=== PATIENT | male | born 1970 | race Caucasian/White ===

== ENCOUNTER 2022-04-20 07:09 | Inpatient (IN) | payer BC ==
[2022-04-14 17:18] LABS: BASOPHILS # (AUTO) 0.1 X10'3 (0-0.2); BASOPHILS % (AUTO) 1.3 % (0-1); EOSINOPHILS # (AUTO) 0.9 X10'3 (0-0.9); EOSINOPHILS % (AUTO) 12.7 % (0-6); LYMPHOCYTES # (AUTO) 1.5 X10'3 (1.1-4.8); LYMPHOCYTES % (AUTO) 22.2 % (21-51); MEAN CORPUSCULAR HEMOGLOBIN 31.3 PG (27.0-31.0); MEAN CORPUSCULAR HGB CONC 33.2 g/dL (33.0-36.5); MEAN CORPUSCULAR VOLUME 94.3 FL (78-98); MEAN PLATELET VOLUME 8.1 FL (7.4-10.4); MONOCYTES # (AUTO) 0.5 X10'3 (0-0.9); MONOCYTES % (AUTO) 7.7 % (2-12); NEUTROPHILS # (AUTO) 3.8 X10'3 (1.8-7.7); NEUTROPHILS % (AUTO) 56.1 % (42-75); PRE OP HEMATOCRIT 41.5 % (42.0-52.0); PRE OP HEMOGLOBIN 13.8 g/dL (14.0-17.9); PRE OP PLATELET COUNT 272 X10'3 (140-440); RED CELL DISTRIBUTION WIDTH 13.6 % (11.5-14.5)
[2022-04-14 17:31] LABS: ALBUMIN 3.7 G/DL (3.4-5.0); ALKALINE PHOSPHATASE 53 IU/L (46-116); BLOOD UREA NITROGEN 15 MG/DL (7-18); CALCIUM 8.7 MG/DL (8.5-10.1); CHLORIDE 104 MMOL/L (99-107); CREATININE 0.79 MG/DL (0.60-1.10); PRE OP ALT 30 U/L (30-65); PRE OP ANION GAP 8 (8-16); PRE OP AST 19 U/L (10-37); PRE OP BILIRUB, TOTAL 0.4 MG/DL (0.0-1.0); PRE OP GLUCOSE 77 MG/DL (70-104); PRE OP POTASSIUM 4.2 MMOL/L (3.4-5.1); PRE OP SODIUM 142 MMOL/L (135-145); TOTAL CARBON DIOXIDE 30.3 MMOL/L (24-32); TOTAL PROTEIN 7.3 G/DL (6.4-8.2); eGFR > 90 ML/MIN
[2022-04-20] VITALS (14 sets, daily range): BP systolic 91–147; BP diastolic 49–90
[~2022-04-20] VITALS: Ht 188 cm; Wt 113.0 kg
[~2022-04-20 07:09] MED LIST: CHOL500049 PO; IBUP-1985 PO; LACT1CAP65 PO; MAGNESIUM/CALCIUM PO; MELA10TA3 PO; SIMV-45 PO; UBIQ100C2 PO; ceFAZolin inj. 2,000 MG in dextrose 5%-water 100 ML IV ONE; famotidine 20mg tablet PO ONE; ringers solution, lacted 1,000 ML IV SCH; tranexamic acid 650mg tablet PO ONE; vancomycin 1,500 MG in NS 300ml IV soln IV ONE
--- NOTE | 2022-04-20 07:40 | NUR ---
CSM: PATIENT STATES THE DID NOT WATCH THE VIDEO. PATIENT STATES THEY DID USE THE MUPIROCIN OINTMENT. PULSES PRESENT AND MARKED. PATIENT EDUCATED ON THE INCENTIVE SPIROMETER AND ITS IMPORTANCE.
[2022-04-20] MEDS ORDERED: ROPIVAcaine 0.5% (5mg/ml) 30ml vial ONE ×2 (09:58→11:05)
[2022-04-20] MEDS ORDERED: tetracaine 1% (10mg/ml) pres. free inj. ONE (09:58)
[2022-04-20] MEDS ORDERED: morphine /PF 1mg/ml 10ml inj. ONE (10:12)
[2022-04-20] MEDS ORDERED: MIDAZolam 1 MG/ML 5ML VIAL ONE (10:26)
[2022-04-20] MEDS ORDERED: ketorolac trometh. 30mg/ml inj. ONE (11:05)
[2022-04-20] MEDS ORDERED: propofol inj 20 ML IV ONE ×5 (11:07→12:32)
[2022-04-20] MEDS ORDERED: 0.9 % SODIUM CHLORIDE 10 ML VIAL ONE ×2 (11:40)
[2022-04-20] MEDS ORDERED: dexamethasone sod phosphate 4mg/ml inj. ONE (11:41)
[2022-04-20] MEDS ORDERED: morphine 4 MG/ML inj SYRINge IV PRN (11:45)
[2022-04-20] MEDS ORDERED: naloxone 2mg/2ml inj 2 MG in normal saline 500ml IV soln 500 ML IV PRN (11:45)
[2022-04-20] MEDS ORDERED: meperidine/PF 25mg/ml syringe IV PRN ×3 (11:45)
[2022-04-20] MEDS ORDERED: proCHLORperazine 10 MG/2 ml inj IV PRN (11:45)
[2022-04-20] MEDS ORDERED: diphenhydrAMINE 50 mg/ml inj IV PRN (11:45)
[2022-04-20] MEDS ORDERED: naloxone 0.4 mg/ml inj IV PRN ×2 (11:45→13:20)
[2022-04-20] MEDS ORDERED: ringers solution, lacted 1,000 ML IV SCH (11:45)
[2022-04-20] MEDS ORDERED: acetaminophen 1,000mg/100ml IV 100 ML IV PRN (11:45)
[2022-04-20] MEDS ORDERED: hydrALAZINE 20mg/ml inj. IV PRN (11:45)
[2022-04-20] MEDS ORDERED: labetalol 20mg/4ml (5mg/ml) syringe IV PRN (11:45)
[2022-04-20] MEDS ORDERED: ondansetron/PF 4mg/2ml inj IV PRN ×3 (11:45→13:20)
[2022-04-20] MEDS ORDERED: morphine 2 MG/ML inj. syringe IV PRN (11:45)
[2022-04-20 12:25] LABS: APPEARANCE,SYNOVIAL FLUID HAZY; COLOR,SYNOVIAL FLUID RED; LYMPHOCYTES,SYNOVIAL FLUID 40 % (0-75); MONOCYTES,SYNOVIAL FLUID 18 % (0-0); NEUTROPHILS,SYNOVIAL FLUID 36 % (0-25); SYN RBC 8600 /CU MM (0); SYN WBC 150 /CU MM (0-200); SYNOVIAL LINING CELLS 6
[2022-04-20] MEDS ORDERED: magnesium hydroxide 30ml (MOM) UD suspension PO PRN (13:20)
[2022-04-20] MEDS ORDERED: HYDROmorphone inj. 0.5 MG/0.5 ML DISP.SYRIN IV PRN (13:20)
[2022-04-20] MEDS ORDERED: oxyCODONE IR 5mg (immed. release) tablet PO PRN (13:20)
[2022-04-20] MEDS ORDERED: non-formulary drug (Ibuprofen 1 TAB) PO PRN (13:20)
[2022-04-20] MEDS ORDERED: bisacodyl 10mg suppository rectal RC PRN (13:20)
[2022-04-20] MEDS ORDERED: diphenhydrAMINE 25mg capsule PO PRN ×2 (13:20)
[2022-04-20] MEDS ORDERED: acetaminophen 325mg tablet PO PRN (13:20)
--- NOTE | 2022-04-20 13:27 | NUR ---
Received from OR via bed , accompanied by Anesthesiologist and report given by Dr. Bonilla Anesthesiologist. Patient drowsy, denies pain, VSS, neurovascular checks intact, scd on, dressing to right knee is clean dry and intact, pyle cath via gravity drainage and yellow urine noted, patient stated that SAB given, numbness on RLE with dermatome level of T12 and no movement at this time. Addendum: 04/20/22 at 1344 by Aryan Ortiz RN Amended: Links added.
--- NOTE | 2022-04-20 14:18 | NUR ---
Patient in room ORTHO 4021A. I have received report from CHRISTINA ZAMORA FORM RECOVERY and had the opportunity to ask questions and assume patient care.
--- NOTE | 2022-04-20 14:25 | NUR ---
PATIENT HAS MET ALL CRITERIA FOR TRANSFER TO ORTHO FLOOR. VSS. DRESSINGS INTACT. BED LOW, CALL LIGHT PRESENT AND 2 RAILS UP. RN PRESENT TO ACCEPT CARE OF PATIENT AND REPORT HAS BEEN CALLED. ALL QUESTIONS ANSWERED TO ACCEPTING RN. Addendum: 04/20/22 at 1440 by Aryan Ortiz RN Amended: Links added.
[2022-04-20] MEDS: acetaminophen 325mg tablet PO SCH ×2 (15:23→20:22)
[2022-04-20] MEDS: ceFAZolin/D5W- 1GM premix 50 ML IV SCH (16:23)
[2022-04-20] MEDS: potassium cl 20mEq in 1/2 NS 1,000 ML IV SCH ×2 (17:38→20:29)
--- NOTE | 2022-04-20 18:00 | NUR ---
PATIENT WAS SEEN SITTING ON THE EDGE OF THE BED AT SHIFT CHANGE. PER DAY SHIFT RN, PATIENT WAS CLEARED BY HIS SURGEON TO GO HOME. UNFORTUNATELY, THE RIGHT KNEE WERE HE WAS OPERATED ON WAS SATURATED IN BLOOD AND WE TRIED TO REINFORCE IT. THE BLEEDING GOT WORSE AND THE SURGEON WAS NOTIFIED. DISCHARGE POSTPONED UNTIL THE BLEEDING IS UNDER CONTROL. PER DOCTOR'S ORDERS, TO REINFORCE THE DRESSING AND PLACE PATIENT IN A CPN AT 90 DEGREES ANGLE. PATIENT IS TOLERATING PAIN WELL AND WE WILL CONTINUE TO MONITOR THE SURGICAL SITE.
--- NOTE | 2022-04-20 18:51 | NUR ---
DR MONIQUE AWARE PATIENT BLOODY DRAINAGE AND STARTED OOZING OUT A LOT WHEN REMOVING BLOODY DRESSING. HE SAID TO KEEP PATIENT AND PRESSURE DRESSING......INCISION ASSESSED AGAIN APPEARS THAT BLOOD IS SHOOTING STRAIGHT OUT OF INCISION. DR MONIQUE CALLED AGAIN. HE SAID PRESSURE DRESSING, GET CPM AND LOCK LEG AT 90 DEGREE FLEXION, THAT THIS MAY HELP STOP BLEED.
[2022-04-20] MEDS: HYDROmorphone 1 mg/ml syringe IV PRN (19:10)
--- NOTE | 2022-04-20 19:18 | NUR ---
Problems reprioritized. Patient report given, questions answered & plan of care reviewed with CHRISTINA MENDOZA.
[2022-04-20] MEDS ORDERED: vancomycin/NS 1 GM ADD-VANTAGE 250 ML IV SCH (20:00)
[2022-04-20] MEDS ORDERED: atorvastatin 20mg tablet PO SCH (21:00)
[2022-04-20] MEDS ORDERED: sennosides 8.6mg tablet PO SCH (21:00)
[2022-04-20] MEDS ORDERED: Melatonin 3mg tablet PO SCH (21:00)
[2022-04-21] VITALS (14 sets, daily range): BP systolic 102–142; BP diastolic 57–80
[2022-04-21] MEDS: ceFAZolin/D5W- 1GM premix 50 ML IV SCH (01:04)
[2022-04-21] MEDS: acetaminophen 325mg tablet PO SCH ×3 (02:00→14:38)
[2022-04-21] MEDS: HYDROmorphone 1 mg/ml syringe IV PRN (04:24)
[2022-04-21] MEDS: potassium cl 20mEq in 1/2 NS 1,000 ML IV SCH ×2 (04:31→14:27)
--- NOTE | 2022-04-21 06:00 | NUR ---
Received patient report from CHRISTINA Quijano.
--- NOTE | 2022-04-21 06:14 | NUR ---
Problems reprioritized. Patient report given, questions answered & plan of care reviewed with GLENDY VASQUEZ.
[2022-04-21] MEDS: oxyCODONE IR 5mg (immed. release) tablet PO PRN ×3 (06:34→16:52)
[2022-04-21 06:54] LABS: ANION GAP 9 (8-16); CHLORIDE 107 MMOL/L (99-107); POTASSIUM 4.5 MMOL/L (3.5-5.1); SODIUM 141 MMOL/L (135-145); TOTAL CARBON DIOXIDE 25.3 MMOL/L (24-32)
[2022-04-21] MEDS ORDERED: morphine 4 MG/ML inj SYRINge IV PRN (07:25)
[2022-04-21] MEDS ORDERED: ondansetron/PF 4mg/2ml inj IV PRN (07:25)
[2022-04-21] MEDS ORDERED: ringers solution, lacted 1,000 ML IV SCH (07:25)
[2022-04-21] MEDS ORDERED: fentaNYL/PF 50MCG/1 ML 2ML syringe IV PRN (07:25)
[2022-04-21] MEDS ORDERED: hydrALAZINE 20mg/ml inj. IV PRN (07:25)
[2022-04-21] MEDS ORDERED: morphine 2 MG/ML inj. syringe IV PRN (07:25)
[2022-04-21] MEDS ORDERED: labetalol 20mg/4ml (5mg/ml) syringe IV PRN (07:25)
[2022-04-21 07:42] LABS: BASOPHILS % (AUTO) 0.2 % (0-1); EOSINOPHILS % (AUTO) 0.3 % (0-6); HEMATOCRIT 34.1 % (42.0-52.0); HEMOGLOBIN 11.6 g/dl (14.0-17.9); LYMPHOCYTES # (AUTO) 1.1 X10'3 (1.1-4.8); LYMPHOCYTES % (AUTO) 14.6 % (21-51); MEAN CORPUSCULAR HEMOGLOBIN 31.9 PG (27.0-31.0); MEAN CORPUSCULAR HGB CONC 33.9 g/dL (33.0-36.5); MEAN CORPUSCULAR VOLUME 93.9 FL (78-98); MEAN PLATELET VOLUME 7.8 FL (7.4-10.4); MONOCYTES # (AUTO) 0.7 X10'3 (0-0.9); NEUTROPHILS # (AUTO) 5.8 X10'3 (1.8-7.7); NEUTROPHILS % (AUTO) 75.9 % (42-75); PLATELET COUNT 224 X10'3 (140-440); RED BLOOD COUNT 3.63 X10'6 (4.70-6.10); RED CELL DISTRIBUTION WIDTH 13.3 % (11.5-14.5); WHITE BLOOD COUNT 7.7 X10'3 (4.5-11.0)
[2022-04-21] MEDS ORDERED: cholecalciferol (vitamin D3) 1,000 unit (25mcg) tablet PO SCH (08:00)
[2022-04-21] MEDS ORDERED: UBIQUINOL 50 MG PO SCH (08:00)
[2022-04-21] MEDS ORDERED: CALCIUM PO SCH (08:00)
[2022-04-21] MEDS ORDERED: MAGNESIUM PO SCH (08:00)
[2022-04-21] MEDS ORDERED: lactobacillus rhamnosus 10,000 MMU CELLS/CAPSULE PO SCH (08:00)
--- NOTE | 2022-04-21 08:00 | NUR ---
REVIEWED AND CHANGED CRISIS COUNSELOR PHYSICAL ASSESSMENT CHARTING, I AGREE W/PHYSICAL ASSESSMENT CHARTING AT THIS TIME
[2022-04-21] MEDS ORDERED: aspirin 325mg tablet PO SCH (08:30)
[2022-04-21] MEDS ORDERED: BUPIVAcaine 0.5% inj/PF 30 ML ONE (09:16)
[2022-04-21] MEDS ORDERED: ROPIVAcaine 0.5% (5mg/ml) 30ml vial ONE ×2 (09:26→10:17)
[2022-04-21] MEDS ORDERED: fentaNYL/PF 50MCG/1 ML 2ML syringe ONE (09:28)
[2022-04-21] MEDS ORDERED: midazolam 1 mg/ML 2ml injection ONE (09:28)
[2022-04-21] MEDS ORDERED: propofol inj 20 ML IV ONE (09:30)
[2022-04-21] MEDS ORDERED: ondansetron/PF 4mg/2ml inj ONE (09:30)
[2022-04-21] MEDS ORDERED: LIDOcaine 2% (20mg/ml) 5ml vial ONE (09:30)
[2022-04-21] MEDS ORDERED: sevoflurane 250ml liquid IH ONE (09:38)
[2022-04-21] MEDS ORDERED: dexamethasone sod phosphate 4mg/ml inj. ONE (09:45)
[2022-04-21] MEDS ORDERED: tranexamic acid 100mg/ml inj. ONE (10:09)
[2022-04-21] MEDS ORDERED: ketorolac trometh. 30mg/ml inj. ONE (10:17)
[2022-04-21] MEDS ORDERED: meperidine/PF 25mg/ml syringe ONE (10:43)
--- NOTE | 2022-04-21 10:45 | NUR ---
Received from OR via , accompanied by Anesthesiologist and report given by Anesthesiolgist. PATIENT A&OX4, VSS. C/O 06/10 PAIN RIGHT KNEE SEE EMAR, . DRESSING TO RIGHT KNEE C/D/I SCD ON,. CAP REFILL WNL. ICE APPLIED. IV RUNNING LR TO 20 G IV TO LEFT HAND.
--- NOTE | 2022-04-21 10:46 | NUR ---
PT GIVEN 25 MG DEMEROL FOR PAIN AND SHIVERS PER DR DOMINGUEZ VERBAL ORDERS AT BEDSIDE. Addendum: 04/21/22 at 1047 by Nubia Barahona RN Amended: Links added.
[2022-04-21] MEDS ORDERED: acetaminophen 1,000mg/100ml IV 100 ML IV ONE (10:50)
[2022-04-21] MEDS: fentaNYL/PF 50MCG/1 ML 2ML syringe IV PRN ×2 (10:50→10:57)
--- NOTE | 2022-04-21 11:16 | NUR ---
RECEIVED REPORT FROM CHRISTINA CRAIG IN RECOVERY
--- NOTE | 2022-04-21 11:25 | NUR ---
PATIENT A&OX4, VSS. C/O 02/08 PAIN RIGHT KNEE SEE EMAR, . DRESSING TO RIGHT KNEE C/D/I SCD ON,. CAP REFILL WNL. ICE APPLIED. IV RUNNING LR TO 20 G IV TO LEFT HAND. PATIENT TAKEN TO 4021A WITH ALL BELONGINGS AND HOOKED UP TO MONITORS IN ROOM AND REPORT GIVEN TO RN WHO HAS TAKEN OVER PATIENT CARE.
[2022-04-21] MEDS ORDERED: ceFAZolin/D5W- 1GM premix 50 ML IV SCH (16:00)
--- NOTE | 2022-04-21 18:13 | NUR ---
Problems reprioritized. Patient report given, questions answered & plan of care reviewed with CHRISTINA Quijano.
--- NOTE | 2022-04-21 18:59 | NUR ---
Patient in room ORTHO 4021. I have received report from GABRIEL VASQUEZ and had the opportunity to ask questions and assume patient care.
--- NOTE | 2022-04-21 19:30 | NUR ---
PATIENT DISCHARGED HOME. EDUCATION PROVIDED AND TO CALL ER IF ANY COMPLICATIONS. SPOUSE DROVE PATIENT HOME.
--- NOTE | 2022-04-21 19:45 | NUR ---
dc pt home with and all belongings.
[2022-04-22] MEDS ORDERED: acetaminophen 325mg tablet PO PRN (13:20)
== END 2022-04-21 19:45 | disposition home or self-care (01) | DRG 468 ==
LOC: PAS IN 07:09 → EDSTATUS 12:45 → ORTHO 4S 14:32
PROVIDERS: ADMIT Orthopaedic Surgery; ATTEND Orthopaedic Surgery
PROC: 0SRC0J9 Replacement of Right Knee Joint with Synthetic Substitute, Cemented, Open Approach (ICD-10-PCS; 2022-04-20)
PROC: 0SPC0JZ Removal of Synthetic Substitute from Right Knee Joint, Open Approach (ICD-10-PCS; principal; 2022-04-20 09:58)
PROC: 0H5 Skin and Breast, Destruction (ICD-10-PCS; 2022-04-21)
DX: T84.82XA Fibrosis due to internal orthopedic prosthetic devices, implants and grafts, initial encounter (principal); Z96.651 Presence of right artificial knee joint; M25.661 Stiffness of right knee, not elsewhere classified; Y83.8 Other surgical procedures as the cause of abnormal reaction of the patient, or of later complication, without mention of misadventure at the time of the procedure; Z20.822 Contact with and (suspected) exposure to COVID-19; L91.0 Hypertrophic scar; Z79.899 Other long term (current) drug therapy; Y92.89 Other specified places as the place of occurrence of the external cause
CPT/HCPCS: Z7506; Z7508; 36415; 80051; 80053; 82948; 85025; 87070; 87075; 87081; 89051; 93005; 97110; 97116; 97161; 97530; A4215; A4618; A6253; A6446; A6449; A7000; C1713; C1758; C1776; G0378; J0131; J0690; J1100; J1170; J1885; J2175; J2250; J2270; J2274; J2405; J2704; J2795; J3010; J3370; J3480; J3490; J7030; J7040; J7060; J7120; S0020

== ENCOUNTER 2022-04-27 09:45 | Outpatient (CLI) | payer BC ==
[~2022-04-27 09:45] MED LIST changes: -ceFAZolin inj. 2,000 MG in dextrose 5%-water 100 ML IV ONE; -famotidine 20mg tablet PO ONE; -ringers solution, lacted 1,000 ML IV SCH; -tranexamic acid 650mg tablet PO ONE; -vancomycin 1,500 MG in NS 300ml IV soln IV ONE
[2022-04-27] MEDS ORDERED: APIX5TAB3 PO (11:22)
== END 2022-04-27 23:59 | disposition home or self-care (01) ==
LOC: VAS 09:45
PROVIDERS: ATTEND Physician Assistant
DX: I82.441 Acute embolism and thrombosis of right tibial vein (principal); M79.81 Nontraumatic hematoma of soft tissue
CPT/HCPCS: 93971

== ENCOUNTER 2022-04-27 10:58 | Emergency (ER) | payer BC ==
[~2022-04-27] VITALS: Ht 188 cm; Wt 111.4 kg
[2022-04-27 11:00] VITALS: BP 129/76
[2022-04-27] MEDS ORDERED: APIX5TAB3 PO (11:22)
== END 2022-04-27 11:43 | disposition home or self-care (01) ==
LOC: ER 10:58
DX: I82.441 Acute embolism and thrombosis of right tibial vein (principal); Z98.890 Other specified postprocedural states; Z79.01 Long term (current) use of anticoagulants; Z79.899 Other long term (current) drug therapy
CPT/HCPCS: 99284

== ENCOUNTER 2022-08-27 08:55 | Inpatient (IN) | payer BC ==
[2022-08-24 14:16] LABS: BASOPHILS # (AUTO) 0.1 X10'3 (0-0.2); BASOPHILS % (AUTO) 0.7 % (0-1); EOSINOPHILS # (AUTO) 0.2 X10'3 (0-0.9); EOSINOPHILS % (AUTO) 2.5 % (0-6); LYMPHOCYTES # (AUTO) 1.4 X10'3 (1.1-4.8); MEAN CORPUSCULAR VOLUME 88.2 FL (78-98); MEAN PLATELET VOLUME 7.1 FL (7.4-10.4); MONOCYTES # (AUTO) 0.6 X10'3 (0-0.9); MONOCYTES % (AUTO) 8.6 % (2-12); NEUTROPHILS # (AUTO) 4.7 X10'3 (1.8-7.7); NEUTROPHILS % (AUTO) 68.2 % (42-75); PRE OP HEMATOCRIT 37.5 % (42.0-52.0); PRE OP HEMOGLOBIN 12.8 g/dL (14.0-17.9); PRE OP PLATELET COUNT 359 X10'3 (140-440); RED BLOOD COUNT 4.25 X10'6 (4.70-6.10); RED CELL DISTRIBUTION WIDTH 14.2 % (11.5-14.5)
[2022-08-24 14:26] LABS: ALBUMIN 3.6 G/DL (3.4-5.0); ALBUMIN/GLOBULIN RATIO 0.8 (1.1-1.5); ALKALINE PHOSPHATASE 62 IU/L (46-116); BLOOD UREA NITROGEN 13 MG/DL (7-18); BUN/CREATININE RATIO 15.3 (5.4-32.0); CHLORIDE 101 MMOL/L (99-107); CREATININE 0.85 MG/DL (0.60-1.10); PRE OP ALT 21 U/L (30-65); PRE OP ANION GAP 6 (8-16); PRE OP AST 15 U/L (10-37); PRE OP BILIRUB, TOTAL 0.4 MG/DL (0.0-1.0); PRE OP GLUCOSE 92 MG/DL (70-104); PRE OP POTASSIUM 4.1 MMOL/L (3.4-5.1); PRE OP SODIUM 138 MMOL/L (135-145); TOTAL CARBON DIOXIDE 30.8 MMOL/L (24-32); TOTAL PROTEIN 7.9 G/DL (6.4-8.2); eGFR > 90 ML/MIN
[~2022-08-27] VITALS: Ht 188 cm; Wt 101.6 kg
[2022-08-27] VITALS (12 sets, daily range): BP systolic 97–126; BP diastolic 58–90
[~2022-08-27 08:55] MED LIST changes: +ACET-75 PO; +APIX5TAB3 PO; +CALC-995 PO; -IBUP-1985 PO; +MAGN400T39 PO; -MAGNESIUM/CALCIUM PO; +OXYC10TA47 PO; +UBID100C45 PO; -UBIQ100C2 PO; +ceFAZolin inj. 2,000 MG in dextrose 5%-water 100 ML IV ONE; +famotidine 20mg tablet PO ONE; +ringers solution, lacted 1,000 ML IV SCH; +tranexamic acid 650mg tablet PO ONE
[2022-08-27] MEDS ORDERED: morphine 2 MG/ML inj. syringe IV PRN (11:05)
[2022-08-27] MEDS ORDERED: ringers solution, lacted 1,000 ML IV SCH (11:05)
[2022-08-27] MEDS ORDERED: ondansetron/PF 4mg/2ml inj IV PRN ×2 (11:05→15:50)
[2022-08-27] MEDS ORDERED: meperidine/PF 25mg/ml syringe IV PRN ×3 (11:05)
[2022-08-27] MEDS ORDERED: proCHLORperazine 10 MG/2 ml inj IV PRN (11:05)
[2022-08-27] MEDS ORDERED: morphine 4 MG/ML inj SYRINge IV PRN (11:05)
[2022-08-27] MEDS ORDERED: ketorolac trometh. 30mg/ml inj. ONE (12:21)
[2022-08-27] MEDS ORDERED: ROPIVAcaine 0.5% (5mg/ml) 30ml vial ONE ×2 (12:21→15:33)
[2022-08-27] MEDS ORDERED: MIDAZolam 1mg/ml 10ml vial ONE (13:21)
[2022-08-27] MEDS ORDERED: fentaNYL/PF 50MCG/1 ML 2ML syringe ONE (13:21)
[2022-08-27] MEDS ORDERED: vancomycin 1,000mg inj ONE (13:47)
[2022-08-27] MEDS ORDERED: tobramycin 40mg/ml inj ONE (13:48)
[2022-08-27] MEDS ORDERED: propofol inj 20 ML IV ONE (13:55)
[2022-08-27] MEDS ORDERED: LIDOcaine 1%/PF 5ML 10 MG/ML VIAL ONE (13:55)
[2022-08-27] MEDS ORDERED: VANCOMYCIN 1,500MG in normal saline IV soln 300 ML IV ONE (14:05)
[2022-08-27] MEDS ORDERED: tranexamic acid 100mg/ml inj. ONE (14:30)
[2022-08-27] MEDS ORDERED: diphenhydrAMINE 50 mg/ml inj ONE (14:35)
[2022-08-27] MEDS ORDERED: cloNIDine hcl/PF 100mcg/ml inj ONE (15:18)
[2022-08-27] MEDS ORDERED: oxyCODONE IR 5mg (immed. release) tablet PO PRN (15:50)
[2022-08-27] MEDS ORDERED: non-formulary drug (Acetaminophen 1 TAB) PO PRN (15:50)
[2022-08-27] MEDS ORDERED: HYDROmorphone inj. 0.5 MG/0.5 ML DISP.SYRIN IV PRN (15:50)
[2022-08-27] MEDS ORDERED: magnesium hydroxide 30ml (MOM) UD suspension PO PRN (15:50)
[2022-08-27] MEDS ORDERED: HYDROcodone/acetaminophen 10/325mg tab PO PRN ×2 (15:50)
[2022-08-27] MEDS ORDERED: acetaminophen 325mg tablet PO PRN (15:50)
[2022-08-27] MEDS ORDERED: diphenhydrAMINE 25mg capsule PO PRN ×2 (15:50)
[2022-08-27] MEDS ORDERED: naloxone 0.4 mg/ml inj IV PRN (15:50)
[2022-08-27] MEDS ORDERED: bisacodyl 10mg suppository rectal RC PRN (15:50)
--- NOTE | 2022-08-27 16:00 | NUR ---
Received from OR via , accompanied by Anesthesiologist and report given by Anesthesiolgist. PATIENT A&OX4, DENIES PAIN, V/S WNL, SCD ON , PIV 20G LUE, DRESSING CDI TO RIGHT KNEE CDI W/ JESSY MINIMAL OUTPUT, RIGHT LEG BRACE LOCKED AT 180 DEGREES, F/C DRAINING CLEAR YELLOW URINE.
--- NOTE | 2022-08-27 16:45 | NUR ---
Patient arrived in floor, situated in room, call light given and educated on how to use. Post-op vital signs started.
--- NOTE | 2022-08-27 16:50 | NUR ---
PATIENT A&OX4, DENIES PAIN, V/S WNL, SCD ON , PIV 20G LUE, DRESSING CDI TO RIGHT KNEE CDI W/ JESSY MINIMAL OUTPUT, RIGHT LEG BRACE LOCKED AT 180 DEGREES, F/C DRAINING CLEAR YELLOW URINE.PATIENT TAKEN TO 350B FLOOR ROOM WITH ALL BELONGINGS AND HOOKED UP TO ALL MONITORS IN ROOM AND REPORT GIVEN TO RN WHO HAS TAKEN OVER PATIENT CARE.
[2022-08-27] MEDS: oxyCODONE IR 5mg (immed. release) tablet PO PRN ×2 (17:34→22:15)
[2022-08-27] MEDS: ceFAZolin/D5W- 1GM premix 50 ML IV SCH ×2 (18:17→23:49)
[2022-08-27] MEDS: HYDROmorphone 1 mg/ml syringe IV PRN (18:17)
--- NOTE | 2022-08-27 18:52 | NUR ---
Problems reprioritized. Patient report given, questions answered & plan of care reviewed with ANTHONY RN.
--- NOTE | 2022-08-27 19:40 | NUR ---
PT STATED HE WAS EXPERIENCING EXCRUCIATING PAIN ON SURGICAL SITE(RT KNEE) AND PAIN MEDS DID NOT HELP AT ALL. PAGED FOR PAIN MANAGEMENT. EXPLAINED PT AND HIS ABOUT PLANS. PT IS ON RT KNEE IMMOBILIZER, AND EMPTIED 70ML SANGUINOUS COLOR FROM JESSY DRAIN.
[2022-08-27] MEDS: apixaban 5mg tablet PO SCH (20:00)
[2022-08-27] MEDS: acetaminophen 325mg tablet PO SCH (20:00)
[2022-08-27] MEDS ORDERED: vancomycin/NS 1 GM ADD-VANTAGE 250 ML IV SCH (20:00)
[2022-08-27] MEDS ORDERED: HYDROmorphone 1 mg/ml syringe IV ONE (20:35)
[2022-08-27] MEDS: potassium cl 20mEq in 1/2 NS 1,000 ML IV SCH ×2 (20:48→23:50)
[2022-08-27] MEDS: sennosides 8.6mg tablet PO SCH (21:00)
--- NOTE | 2022-08-27 21:00 | NUR ---
RECEIVED NEW ORDERS OF PAIN MGMT. DILAUDID 2MG IVP ONCE, AND PT FELT BETTER. EXPLAINED NEW PAIN MGMT AND WOULD CALL ANESTHESIOLOGIST FOR NERVE BLOCK TOMORROW PER MD. PT VERBALIZED UNDERSTANDING.
[2022-08-28] MEDS: HYDROmorphone 1 mg/ml syringe IV PRN ×6 (01:25→20:05)
[2022-08-28 01:39] VITALS: BP 120/73
[2022-08-28] MEDS: acetaminophen 325mg tablet PO SCH ×4 (01:46→20:05)
[2022-08-28] MEDS: oxyCODONE IR 5mg (immed. release) tablet PO PRN ×2 (04:59→15:27)
--- NOTE | 2022-08-28 07:00 | NUR ---
Patient in room [facility] 350. I have received report from ANTHONY RN and had the opportunity to ask questions and assume patient care.
[2022-08-28 07:03] LABS: BASOPHILS % (AUTO) 0.4 % (0-1); EOSINOPHILS % (AUTO) 0.1 % (0-6); HEMATOCRIT 32.5 % (42.0-52.0); LYMPHOCYTES # (AUTO) 1.4 X10'3 (1.1-4.8); LYMPHOCYTES % (AUTO) 13.7 % (21-51); MEAN CORPUSCULAR HEMOGLOBIN 29.9 PG (27.0-31.0); MEAN CORPUSCULAR HGB CONC 33.8 g/dL (33.0-36.5); MEAN CORPUSCULAR VOLUME 88.5 FL (78-98); MEAN PLATELET VOLUME 7.8 FL (7.4-10.4); MONOCYTES # (AUTO) 0.8 X10'3 (0-0.9); MONOCYTES % (AUTO) 7.9 % (2-12); NEUTROPHILS # (AUTO) 8.2 X10'3 (1.8-7.7); NEUTROPHILS % (AUTO) 77.9 % (42-75); PLATELET COUNT 342 X10'3 (140-440); RED BLOOD COUNT 3.67 X10'6 (4.70-6.10); RED CELL DISTRIBUTION WIDTH 14.2 % (11.5-14.5); WHITE BLOOD COUNT 10.5 X10'3 (4.5-11.0)
[2022-08-28 07:28] LABS: ANION GAP 9 (8-16); CHLORIDE 101 MMOL/L (99-107); POTASSIUM 4.3 MMOL/L (3.5-5.1); SODIUM 136 MMOL/L (135-145); TOTAL CARBON DIOXIDE 25.7 MMOL/L (24-32)
[2022-08-28 08:00] VITALS: BP 124/91
[2022-08-28] MEDS ORDERED: calcium carbonate 500mg tablet PO SCH (08:00)
[2022-08-28] MEDS ORDERED: non-formulary drug (Ubidecarenone (Co Q-10) 1 CAP) PO SCH (08:00)
[2022-08-28] MEDS: magnesium oxide 400mg tablet PO SCH (08:28)
[2022-08-28] MEDS: cholecalciferol (vitamin D3) 1,000 unit (25mcg) tablet PO SCH (08:28)
[2022-08-28] MEDS: lactobacillus rhamnosus 10,000 MMU CELLS/CAPSULE PO SCH (08:28)
[2022-08-28] MEDS: apixaban 5mg tablet PO SCH ×2 (08:43→20:04)
[2022-08-28] MEDS: aspirin 325mg tablet PO SCH (08:43)
[2022-08-28] MEDS: potassium cl 20mEq in 1/2 NS 1,000 ML IV SCH ×2 (08:43→17:06)
[2022-08-28 12:13] VITALS: BP 120/67
[2022-08-28] MEDS: vancomycin/NS 1 GM ADD-VANTAGE 250 ML IV SCH ×2 (15:27→23:20)
[2022-08-28 16:43] VITALS: BP 128/88
[2022-08-28] MEDS ORDERED: HYDROmorphone 1 mg/ml syringe IV PRN (17:35)
[2022-08-28 18:00] VITALS: BP 115/72
--- NOTE | 2022-08-28 18:25 | NUR ---
Patient in room [facility] 350. I have received report from CHRISTINA Villalta and had the opportunity to ask questions and assume patient care.
[2022-08-28] MEDS: ketorolac trometh. 30mg/ml inj. IV PRN (19:04)
--- NOTE | 2022-08-28 19:05 | NUR ---
Problems reprioritized. Patient report given, questions answered & plan of care reviewed with Mariana VASQUEZ.
[2022-08-28] MEDS: sennosides 8.6mg tablet PO SCH (20:14)
[2022-08-28 22:00] VITALS: BP 105/80
[2022-08-29] MEDS: potassium cl 20mEq in 1/2 NS 1,000 ML IV SCH ×3 (01:37→12:50)
[2022-08-29] MEDS: acetaminophen 325mg tablet PO SCH ×3 (01:38→14:58)
[2022-08-29] MEDS: HYDROmorphone 1 mg/ml syringe IV PRN ×4 (01:39→12:36)
[2022-08-29 06:00] VITALS: BP 132/53
--- NOTE | 2022-08-29 06:30 | NUR ---
Patient in room [facility] 350. I have received report from CHRISTINA Peña and had the opportunity to ask questions and assume patient care.
--- NOTE | 2022-08-29 06:39 | NUR ---
Problems reprioritized. Patient report given, questions answered & plan of care reviewed with CHRISTINA Vargas.
[2022-08-29 06:46] LABS: BASOPHILS % (AUTO) 0.4 % (0-1); EOSINOPHILS # (AUTO) 0.1 X10'3 (0-0.9); EOSINOPHILS % (AUTO) 1.8 % (0-6); HEMATOCRIT 24.4 % (42.0-52.0); HEMOGLOBIN 8.4 g/dl (14.0-17.9); LYMPHOCYTES # (AUTO) 1.5 X10'3 (1.1-4.8); LYMPHOCYTES % (AUTO) 17.6 % (21-51); MEAN CORPUSCULAR HEMOGLOBIN 30.2 PG (27.0-31.0); MEAN CORPUSCULAR HGB CONC 34.5 g/dL (33.0-36.5); MEAN CORPUSCULAR VOLUME 87.6 FL (78-98); MEAN PLATELET VOLUME 7.9 FL (7.4-10.4); MONOCYTES # (AUTO) 0.9 X10'3 (0-0.9); MONOCYTES % (AUTO) 11.3 % (2-12); NEUTROPHILS # (AUTO) 5.7 X10'3 (1.8-7.7); NEUTROPHILS % (AUTO) 68.9 % (42-75); PLATELET COUNT 268 X10'3 (140-440); RED BLOOD COUNT 2.78 X10'6 (4.70-6.10); RED CELL DISTRIBUTION WIDTH 14.1 % (11.5-14.5); WHITE BLOOD COUNT 8.3 X10'3 (4.5-11.0)
--- NOTE | 2022-08-29 07:03 | NUR ---
Patient in room [facility] 350. I have received report from JOSEPH VASQUEZ and had the opportunity to ask questions and assume patient care.
[2022-08-29] MEDS: vancomycin/NS 1 GM ADD-VANTAGE 250 ML IV SCH ×3 (07:26→23:16)
[2022-08-29] MEDS: apixaban 5mg tablet PO SCH ×2 (07:27→21:13)
[2022-08-29] MEDS: lactobacillus rhamnosus 10,000 MMU CELLS/CAPSULE PO SCH (07:27)
[2022-08-29] MEDS: magnesium oxide 400mg tablet PO SCH (07:27)
[2022-08-29] MEDS: cholecalciferol (vitamin D3) 1,000 unit (25mcg) tablet PO SCH (07:27)
[2022-08-29] MEDS: calcium carbonate 500mg tablet PO SCH (08:20)
[2022-08-29] MEDS: aspirin 325mg tablet PO SCH (09:22)
[2022-08-29] MEDS: oxyCODONE IR 5mg (immed. release) tablet PO PRN ×3 (09:23→23:24)
[2022-08-29 10:00] VITALS: BP 103/65
[2022-08-29] MEDS ORDERED: VANCOMYCIN LEVEL IV ONE (14:30)
[2022-08-29] MEDS: ketorolac trometh. 30mg/ml inj. IV PRN ×2 (15:11→21:14)
[2022-08-29] MEDS ORDERED: acetaminophen 325mg tablet PO PRN (15:50)
--- NOTE | 2022-08-29 17:52 | NUR ---
Student documentation: I have reviewed and agree with all interventions, assessments performed and documented by Shobha MARTINEZ Student.
[2022-08-29 18:00] VITALS: BP 107/56
--- NOTE | 2022-08-29 18:20 | NUR ---
Problems reprioritized. Patient report given, questions answered & plan of care reviewed with CHRISTINA Peña.
--- NOTE | 2022-08-29 18:51 | NUR ---
Patient in room [facility] 350. I have received report from CHRISTINA Vargas and had the opportunity to ask questions and assume patient care.
[2022-08-29] MEDS: sennosides 8.6mg tablet PO SCH (21:00)
[2022-08-29 22:00] VITALS: BP 113/45
[2022-08-30] MEDS: oxyCODONE IR 5mg (immed. release) tablet PO PRN ×3 (04:59→23:19)
[2022-08-30 06:00] VITALS: BP 133/48
[2022-08-30 06:25] LABS: BASOPHILS % (AUTO) 0.5 % (0-1); EOSINOPHILS # (AUTO) 0.2 X10'3 (0-0.9); EOSINOPHILS % (AUTO) 2.1 % (0-6); HEMATOCRIT 23.4 % (42.0-52.0); HEMOGLOBIN 8.3 g/dl (14.0-17.9); LYMPHOCYTES # (AUTO) 1.1 X10'3 (1.1-4.8); LYMPHOCYTES % (AUTO) 11.8 % (21-51); MEAN CORPUSCULAR HEMOGLOBIN 30.8 PG (27.0-31.0); MEAN CORPUSCULAR HGB CONC 35.4 g/dL (33.0-36.5); MEAN CORPUSCULAR VOLUME 87.1 FL (78-98); MEAN PLATELET VOLUME 7.4 FL (7.4-10.4); MONOCYTES % (AUTO) 10.4 % (2-12); NEUTROPHILS # (AUTO) 6.9 X10'3 (1.8-7.7); NEUTROPHILS % (AUTO) 75.2 % (42-75); PLATELET COUNT 259 X10'3 (140-440); RED BLOOD COUNT 2.69 X10'6 (4.70-6.10); RED CELL DISTRIBUTION WIDTH 14.1 % (11.5-14.5); WHITE BLOOD COUNT 9.2 X10'3 (4.5-11.0)
--- NOTE | 2022-08-30 06:50 | NUR ---
Problems reprioritized. Patient report given, questions answered & plan of care reviewed with CHRISTINA Dunaway.
[2022-08-30 06:58] LABS: ALBUMIN 2.2 G/DL (3.4-5.0); ANION GAP 9 (8-16); BLOOD UREA NITROGEN 8 MG/DL (7-18); BUN/CREATININE RATIO 11.4 (5.4-32.0); CALCIUM 8.3 MG/DL (8.5-10.1); CHLORIDE 101 MMOL/L (99-107); GLUCOSE 129 MG/DL (70-104); POTASSIUM 3.7 MMOL/L (3.5-5.1); SODIUM 136 MMOL/L (135-145); TOTAL CARBON DIOXIDE 26.5 MMOL/L (24-32); eGFR > 90 ML/MIN
[2022-08-30] MEDS: HYDROmorphone 1 mg/ml syringe IV PRN (08:44)
[2022-08-30] MEDS: cholecalciferol (vitamin D3) 1,000 unit (25mcg) tablet PO SCH (08:53)
[2022-08-30] MEDS: aspirin 325mg tablet PO SCH (08:53)
[2022-08-30] MEDS: calcium carbonate 500mg tablet PO SCH (08:53)
[2022-08-30] MEDS: lactobacillus rhamnosus 10,000 MMU CELLS/CAPSULE PO SCH (08:54)
[2022-08-30] MEDS: apixaban 5mg tablet PO SCH ×2 (08:54→19:29)
[2022-08-30] MEDS: magnesium oxide 400mg tablet PO SCH (08:54)
[2022-08-30 10:00] VITALS: BP 115/58
[2022-08-30] MEDS: vancomycin/NS 1 GM ADD-VANTAGE 250 ML IV SCH ×3 (12:16→23:12)
[2022-08-30] MEDS: ketorolac trometh. 30mg/ml inj. IV PRN ×2 (12:23→21:37)
[2022-08-30] MEDS ORDERED: VANCOMYCIN LEVEL IV ONE ×2 (14:30→22:30)
[2022-08-30 18:30] VITALS: BP 109/58
[2022-08-30] MEDS: sennosides 8.6mg tablet PO SCH (21:00)
[2022-08-30 22:00] VITALS: BP 118/54
[2022-08-31] MEDS: ketorolac trometh. 30mg/ml inj. IV PRN ×2 (03:32→19:05)
[2022-08-31 06:00] VITALS: BP 98/49
[2022-08-31 06:19] LABS: ALBUMIN 2.1 G/DL (3.4-5.0); ANION GAP 5 (8-16); BLOOD UREA NITROGEN 8 MG/DL (7-18); BUN/CREATININE RATIO 12.5 (5.4-32.0); CALCIUM 8.5 MG/DL (8.5-10.1); CHLORIDE 104 MMOL/L (99-107); CREATININE 0.64 MG/DL (0.60-1.10); GLUCOSE 117 MG/DL (70-104); POTASSIUM 3.8 MMOL/L (3.5-5.1); SODIUM 139 MMOL/L (135-145); TOTAL CARBON DIOXIDE 29.8 MMOL/L (24-32); eGFR > 90 ML/MIN
[2022-08-31] MEDS: oxyCODONE IR 5mg (immed. release) tablet PO PRN ×3 (06:41→22:59)
--- NOTE | 2022-08-31 06:47 | NUR ---
Problems reprioritized. Patient report given, questions answered & plan of care reviewed with STUART. Addendum: 08/31/22 at 0648 by Morgan Zhu RN Amended: Links added.
[2022-08-31] MEDS: apixaban 5mg tablet PO SCH ×2 (07:27→19:29)
[2022-08-31] MEDS: calcium carbonate 500mg tablet PO SCH (07:27)
[2022-08-31] MEDS: cholecalciferol (vitamin D3) 1,000 unit (25mcg) tablet PO SCH (07:27)
[2022-08-31] MEDS: magnesium oxide 400mg tablet PO SCH (07:27)
[2022-08-31] MEDS: lactobacillus rhamnosus 10,000 MMU CELLS/CAPSULE PO SCH (07:27)
[2022-08-31] MEDS: cefazolin/dext.iso 2gm/100ml 100 ML IV SCH ×2 (09:45→17:28)
[2022-08-31 10:00] VITALS: BP 105/49
[2022-08-31] MEDS: aspirin 325mg tablet PO SCH (14:38)
[2022-08-31 18:50] VITALS: BP 111/58
[2022-08-31] MEDS: sennosides 8.6mg tablet PO SCH (21:00)
[2022-08-31 23:00] VITALS: BP 99/49
[2022-09-01] MEDS: cefazolin/dext.iso 2gm/100ml 100 ML IV SCH ×2 (00:06→08:07)
[2022-09-01] MEDS: oxyCODONE IR 5mg (immed. release) tablet PO PRN ×2 (05:32→11:07)
[2022-09-01 06:00] VITALS: BP 113/56
[2022-09-01 06:14] LABS: ALBUMIN 2.2 G/DL (3.4-5.0); ANION GAP 5 (8-16); BLOOD UREA NITROGEN 11 MG/DL (7-18); BUN/CREATININE RATIO 14.1 (5.4-32.0); CALCIUM 8.6 MG/DL (8.5-10.1); CHLORIDE 104 MMOL/L (99-107); CREATININE 0.78 MG/DL (0.60-1.10); GLUCOSE 114 MG/DL (70-104); POTASSIUM 3.8 MMOL/L (3.5-5.1); SODIUM 138 MMOL/L (135-145); TOTAL CARBON DIOXIDE 29.4 MMOL/L (24-32); eGFR > 90 ML/MIN
--- NOTE | 2022-09-01 06:35 | NUR ---
Problems reprioritized. Patient report given, questions answered & plan of care reviewed with STUART. Addendum: 09/01/22 at 0635 by Morgan Zhu RN Amended: Links added.
[2022-09-01] MEDS: aspirin 325mg tablet PO SCH (08:07)
[2022-09-01] MEDS: magnesium oxide 400mg tablet PO SCH (08:07)
[2022-09-01] MEDS: apixaban 5mg tablet PO SCH (08:07)
[2022-09-01] MEDS: lactobacillus rhamnosus 10,000 MMU CELLS/CAPSULE PO SCH (08:07)
[2022-09-01] MEDS: calcium carbonate 500mg tablet PO SCH (08:07)
[2022-09-01] MEDS: cholecalciferol (vitamin D3) 1,000 unit (25mcg) tablet PO SCH (08:07)
[2022-09-01] MEDS: ketorolac trometh. 30mg/ml inj. IV PRN (08:20)
[2022-09-01 10:00] VITALS: BP 109/68
== END 2022-09-01 15:27 | disposition home health service (06) | DRG 468 ==
LOC: PAS IN 08:55 → SUR 3N 16:59
PROVIDERS: ADMIT Orthopaedic Surgery; ATTEND Orthopaedic Surgery
PROC: 0SRC0EZ Replacement of Right Knee Joint with Articulating Spacer, Open Approach (ICD-10-PCS; 2022-08-27)
PROC: 3E0T3BZ Introduction of Anesthetic Agent into Peripheral Nerves and Plexi, Percutaneous Approach (ICD-10-PCS; 2022-08-27)
PROC: 3E0T33Z Introduction of Anti-inflammatory into Peripheral Nerves and Plexi, Percutaneous Approach (ICD-10-PCS; 2022-08-27)
PROC: 0SPC0JZ Removal of Synthetic Substitute from Right Knee Joint, Open Approach (ICD-10-PCS; principal; 2022-08-27 13:12)
PROC: 02HV33Z Insertion of Infusion Device into Superior Vena Cava, Percutaneous Approach (ICD-10-PCS; 2022-08-28)
PROC: B548ZZA Ultrasonography of Superior Vena Cava, Guidance (ICD-10-PCS; 2022-08-28)
DX: T84.53XA Infection and inflammatory reaction due to internal right knee prosthesis, initial encounter (principal); Y83.1 Surgical operation with implant of artificial internal device as the cause of abnormal reaction of the patient, or of later complication, without mention of misadventure at the time of the procedure; B95.7 Other staphylococcus as the cause of diseases classified elsewhere; G89.29 Other chronic pain; M65.861 Other synovitis and tenosynovitis, right lower leg; E78.5 Hyperlipidemia, unspecified; L91.0 Hypertrophic scar; M24.561 Contracture, right knee; Y92.89 Other specified places as the place of occurrence of the external cause; Z79.01 Long term (current) use of anticoagulants; Z79.899 Other long term (current) drug therapy
CPT/HCPCS: 36569; Z7506; Z7508; 36415; 76942; 80048; 80051; 80053; 80202; 82948; 85025; 85651; 85730; 87070; 87075; 87077; 87081; 87102; 87186; 97110; 97116; 97161; 97530; A6258; A7000; C1713; C1751; C1758; C1776; G0378; J0690; J0735; J1170; J1200; J1885; J2250; J2704; J2795; J3010; J3260; J3370; J3480; J3490; J7030; J7040; J7060; J7120; Q0163

== ENCOUNTER 2023-03-15 09:39 | Inpatient (IN) | payer BC ==
[2023-03-10 15:41] LABS: BASOPHILS # (AUTO) 0.1 X10'3 (0-0.2); BASOPHILS % (AUTO) 1.6 % (0-1); EOSINOPHILS # (AUTO) 0.3 X10'3 (0-0.9); EOSINOPHILS % (AUTO) 4.3 % (0-6); LYMPHOCYTES # (AUTO) 1.3 X10'3 (1.1-4.8); LYMPHOCYTES % (AUTO) 20.6 % (21-51); MEAN CORPUSCULAR HEMOGLOBIN 31.2 PG (27.0-31.0); MEAN CORPUSCULAR HGB CONC 33.7 g/dL (33.0-36.5); MEAN CORPUSCULAR VOLUME 92.6 FL (78-98); MEAN PLATELET VOLUME 7.7 FL (7.4-10.4); MONOCYTES # (AUTO) 0.5 X10'3 (0-0.9); MONOCYTES % (AUTO) 8.3 % (2-12); NEUTROPHILS % (AUTO) 65.2 % (42-75); PRE OP HEMOGLOBIN 13.8 g/dL (14.0-17.9); PRE OP PLATELET COUNT 288 X10'3 (140-440); RED BLOOD COUNT 4.42 X10'6 (4.70-6.10); RED CELL DISTRIBUTION WIDTH 15.3 % (11.5-14.5)
[2023-03-10 16:04] LABS: ALKALINE PHOSPHATASE 67 IU/L (46-116); BLOOD UREA NITROGEN 13 MG/DL (7-18); BUN/CREATININE RATIO 17.3 (10.0-20.0); CHLORIDE 104 MMOL/L (99-107); CREATININE 0.75 MG/DL (0.60-1.10); PRE OP ALT 33 U/L (30-65); PRE OP ANION GAP 8 (8-16); PRE OP AST 26 U/L (10-37); PRE OP BILIRUB, TOTAL 0.5 MG/DL (0.0-1.0); PRE OP GLUCOSE 78 MG/DL (70-104); PRE OP SODIUM 141 MMOL/L (135-145); TOTAL CARBON DIOXIDE 29.1 MMOL/L (24-32); TOTAL PROTEIN 7.9 G/DL (6.4-8.2); eGFR > 90 ML/MIN
[2023-03-15] VITALS (20 sets, daily range): BP systolic 95–121; BP diastolic 51–73
[~2023-03-15] VITALS: Ht 188 cm; Wt 103.8 kg
--- NOTE | 2023-03-15 06:50 | NUR ---
Problems reprioritized. Patient report given, questions answered & plan of care reviewed with Ingrid VASQUEZ.
[~2023-03-15 09:39] MED LIST changes: +DIPH25CA83 PO; -ceFAZolin inj. 2,000 MG in dextrose 5%-water 100 ML IV ONE; +cefazolin 2gm/D5W 100mL 100 ML IV ONE; +vancomycin 1,500 MG in NS 300ml IV soln IV ONE
--- NOTE | 2023-03-15 13:00 | NUR ---
PT ABLE TO COMPLETE ALL 5 SHOWERS AND OINTMENT ORDERED, REVIEWED GIVEN JOINT INFO, PT VERY ANXIOUS ABOUT POST OP PAIN D/T LAST EXPERIENCE -HAS SPOKEN TO ANESTHESIA AND A PLAN HAS BEEN MADE, ON-Q EDUCATION GIVEN, +PULSES PRESENT TO BLE, CSM PRESENT.
[2023-03-15] MEDS ORDERED: tetracaine 1% (10mg/ml) pres. free inj. ONE (13:01)
[2023-03-15] MEDS ORDERED: cloNIDine hcl/PF 100mcg/ml inj ONE (13:02)
[2023-03-15] MEDS ORDERED: BUPIVAcaine/PF 2.5 mg/ml (0.25%) 30ml vial ONE (13:02)
[2023-03-15] MEDS ORDERED: fentaNYL/PF 50MCG/1 ML 2ML syringe ONE (13:04)
[2023-03-15] MEDS ORDERED: MIDAZolam 1mg/ml 10ml vial ONE (13:04)
[2023-03-15] MEDS ORDERED: ROPIVAcaine 0.5% (5mg/ml) 30ml vial ONE ×2 (13:12→14:19)
[2023-03-15] MEDS ORDERED: ketorolac trometh. 30mg/ml inj. ONE (13:12)
[2023-03-15] MEDS ORDERED: ROPIVAcaine 0.5% (5mg/ml) 30ml vial IJ ONE (15:36)
[2023-03-15] MEDS ORDERED: ketorolac trometh. 30mg/ml inj. IV ONE (15:41)
[2023-03-15] MEDS ORDERED: morphine 2 MG/ML inj. syringe IV PRN (15:45)
[2023-03-15] MEDS ORDERED: morphine 4 MG/ML inj SYRINge IV PRN (15:45)
[2023-03-15] MEDS ORDERED: proCHLORperazine 10 MG/2 ml inj IV PRN (15:45)
[2023-03-15] MEDS ORDERED: meperidine/PF 25mg/ml syringe IV PRN ×3 (15:45)
[2023-03-15] MEDS ORDERED: ringers solution, lacted 1,000 ML IV SCH (15:45)
[2023-03-15] MEDS ORDERED: ondansetron/PF 4mg/2ml inj IV PRN ×2 (15:45→17:45)
[2023-03-15] MEDS ORDERED: ROPIVAcaine 0.2% (10 MG/5 ML) BOLUS INJECTION ADDCANAL PRN (15:54)
[2023-03-15] MEDS ORDERED: ROPIVAcaine 0.2%/PF PUMP/bolus 545 ML ADDCANAL SCH (15:54)
[2023-03-15] MEDS ORDERED: propofol inj 20 ML IV ONE ×2 (17:22)
[2023-03-15] MEDS ORDERED: HYDROcodone/acetaminophen 10/325mg tab PO PRN ×2 (17:45)
[2023-03-15] MEDS ORDERED: naloxone 0.4 mg/ml inj IV PRN (17:45)
[2023-03-15] MEDS ORDERED: magnesium hydroxide 30ml (MOM) UD suspension PO PRN (17:45)
[2023-03-15] MEDS ORDERED: non-formulary drug (Oxycodone Hcl 1 TAB) PO PRN (17:45)
[2023-03-15] MEDS ORDERED: HYDROmorphone 1 mg/ml syringe IV PRN (17:45)
[2023-03-15] MEDS ORDERED: acetaminophen 325mg tablet PO PRN (17:45)
[2023-03-15] MEDS ORDERED: diphenhydrAMINE 25mg capsule PO PRN ×3 (17:45)
[2023-03-15] MEDS ORDERED: bisacodyl 10mg suppository rectal RC PRN (17:45)
[2023-03-15] MEDS ORDERED: oxyCODONE IR 5mg (immed. release) tablet PO PRN (17:45)
[2023-03-15] MEDS ORDERED: non-formulary drug (Acetaminophen 1 TAB) PO PRN (17:45)
[2023-03-15] MEDS ORDERED: HYDROmorphone inj. 0.5 MG/0.5 ML DISP.SYRIN IV PRN (17:45)
--- NOTE | 2023-03-15 18:03 | NUR ---
Received from OR via BED IN STABLE CONDITION , accompanied by Anesthesiologist and ADMINISTRATIVE SERVICES OFFICER report given by ADMINISTRATIVE SERVICES OFFICER AND Anesthesiolgist. Addendum: 03/15/23 at 1857 by Delma León RN Amended: Links added.
--- NOTE | 2023-03-15 19:20 | NUR ---
Received report from acetone recovery worker Melissa and patient to follow.
--- NOTE | 2023-03-15 19:30 | NUR ---
Patient arrived to room from recovery via bed. A&O and in no pain or distress. Settled in to room, post-op VS initiated and call light handed to patient.
--- NOTE | 2023-03-15 19:33 | NUR ---
PATIENT DISCHARGED FROM PACU IN STABLE CONDITION AFTER REPORT GIVEN TO RN TAKING OVER PATIENTS CARE. PATIENT TRANSFERRED TO ROOM [facility] VIA BED WITH RNX2. Addendum: 03/15/23 at 1946 by Delma León RN Amended: Links added.
[2023-03-15] MEDS ORDERED: vancomycin/NS 1 GM ADD-VANTAGE 250 ML IV SCH (20:00)
[2023-03-15] MEDS: apixaban 5mg tablet PO SCH (20:45)
[2023-03-15] MEDS ORDERED: atorvastatin 20mg tablet PO SCH (21:00)
[2023-03-15] MEDS ORDERED: sennosides 8.6mg tablet PO SCH (21:00)
[2023-03-15] MEDS ORDERED: UBIDECARENONE 300 MG PO SCH (21:00)
[2023-03-15] MEDS: oxyCODONE IR 5mg (immed. release) tablet PO PRN (23:04)
[2023-03-15] MEDS: potassium cl 20mEq in 1/2 NS 1,000 ML IV SCH (23:04)
[2023-03-15] MEDS: ceFAZolin/D5W- 1GM premix 50 ML IV SCH (23:37)
[2023-03-16] MEDS: potassium cl 20mEq in 1/2 NS 1,000 ML IV SCH ×2 (01:45→09:45)
[2023-03-16 02:00] VITALS: BP 105/57
[2023-03-16] MEDS: oxyCODONE IR 5mg (immed. release) tablet PO PRN ×2 (03:33→08:30)
[2023-03-16 06:00] VITALS: BP 103/59
--- NOTE | 2023-03-16 06:27 | NUR ---
Patient in room ORTHO 4009. I have received report from janay watson and had the opportunity to ask questions and assume patient care.
[2023-03-16 06:55] LABS: BASOPHILS % (AUTO) 0.3 % (0-1); EOSINOPHILS % (AUTO) 0 % (0-6); HEMATOCRIT 30.6 % (42.0-52.0); HEMOGLOBIN 10.3 g/dl (14.0-17.9); LYMPHOCYTES # (AUTO) 1.2 X10'3 (1.1-4.8); LYMPHOCYTES % (AUTO) 13.9 % (21-51); MEAN CORPUSCULAR HEMOGLOBIN 31.4 PG (27.0-31.0); MEAN CORPUSCULAR HGB CONC 33.7 g/dL (33.0-36.5); MEAN CORPUSCULAR VOLUME 93.2 FL (78-98); MEAN PLATELET VOLUME 7.7 FL (7.4-10.4); MONOCYTES # (AUTO) 0.6 X10'3 (0-0.9); MONOCYTES % (AUTO) 7.4 % (2-12); NEUTROPHILS # (AUTO) 6.8 X10'3 (1.8-7.7); NEUTROPHILS % (AUTO) 78.4 % (42-75); PLATELET COUNT 265 X10'3 (140-440); RED BLOOD COUNT 3.29 X10'6 (4.70-6.10); WHITE BLOOD COUNT 8.6 X10'3 (4.5-11.0)
[2023-03-16 07:09] LABS: ANION GAP 11 (8-16); CHLORIDE 105 MMOL/L (99-107); POTASSIUM 4.2 MMOL/L (3.5-5.1); SODIUM 140 MMOL/L (135-145); TOTAL CARBON DIOXIDE 24.2 MMOL/L (24-32)
[2023-03-16] MEDS ORDERED: cholecalciferol (vitamin D3) 1,000 unit (25mcg) tablet PO SCH (08:00)
[2023-03-16] MEDS ORDERED: lactobacillus rhamnosus 10,000 MMU CELLS/CAPSULE PO SCH (08:00)
[2023-03-16] MEDS ORDERED: calcium carbonate 500mg tablet PO SCH (08:00)
[2023-03-16] MEDS ORDERED: magnesium oxide 400mg tablet PO SCH (08:00)
[2023-03-16] MEDS: apixaban 5mg tablet PO SCH (08:25)
[2023-03-16] MEDS: ceFAZolin/D5W- 1GM premix 50 ML IV SCH (08:28)
--- NOTE | 2023-03-16 09:12 | NUR ---
Joint surgery consult: Pt s/p R knee surgery this admit per EMR. Pt seen by VASHTI for written/verbal high protein diet ed w/ RD contact information provided. VASHTI encouraged pt to contact dietitian's office if further nutrition questions/concerns. Addendum: 03/16/23 at [address] Amended: Links added.
[2023-03-16 10:00] VITALS: BP 90/65
--- NOTE | 2023-03-16 14:10 | NUR ---
pt is stable for dc, iv is dc and cannula is intact, all dc paperwork gone over and signed, all belongings taken, pt on Q was full and educated on use, per ingrid dressing was not being changed due to history of infection, will follow up with ortho surg, pt was wheeled down to the lobby and left in a private vehicle.
== END 2023-03-16 13:00 | disposition home health service (06) | DRG 468 ==
LOC: PAS IN 09:39 → ORTHO 4S 19:30
PROVIDERS: ADMIT Orthopaedic Surgery; ATTEND Orthopaedic Surgery
PROC: 0SRC0J9 Replacement of Right Knee Joint with Synthetic Substitute, Cemented, Open Approach (ICD-10-PCS; 2023-03-15)
PROC: 0SPC08Z Removal of Spacer from Right Knee Joint, Open Approach (ICD-10-PCS; 2023-03-15)
PROC: 3E0T3BZ Introduction of Anesthetic Agent into Peripheral Nerves and Plexi, Percutaneous Approach (ICD-10-PCS; 2023-03-15)
PROC: 3E0T33Z Introduction of Anti-inflammatory into Peripheral Nerves and Plexi, Percutaneous Approach (ICD-10-PCS; 2023-03-15)
PROC: 0SPC0JZ Removal of Synthetic Substitute from Right Knee Joint, Open Approach (ICD-10-PCS; principal; 2023-03-15 13:45)
DX: T84.59XA Infection and inflammatory reaction due to other internal joint prosthesis, initial encounter (principal); L91.0 Hypertrophic scar; Y83.8 Other surgical procedures as the cause of abnormal reaction of the patient, or of later complication, without mention of misadventure at the time of the procedure; M24.662 Ankylosis, left knee; M79.604 Pain in right leg; Y92.89 Other specified places as the place of occurrence of the external cause; Z79.899 Other long term (current) drug therapy
CPT/HCPCS: 36415; 80051; 80053; 82948; 85025; 87070; 87075; 87081; 97116; 97161; 97530; A4618; A6258; A6446; A6449; A7000; C1713; C1758; C1776; G0378; J0690; J0735; J1885; J2250; J2704; J2795; J3010; J3370; J3480; J3490; J7030; J7120

== ENCOUNTER 2023-03-23 10:19 | Outpatient (CLI) | payer BC ==
[~2023-03-23 10:19] MED LIST changes: -cefazolin 2gm/D5W 100mL 100 ML IV ONE; -famotidine 20mg tablet PO ONE; -ringers solution, lacted 1,000 ML IV SCH; -tranexamic acid 650mg tablet PO ONE; -vancomycin 1,500 MG in NS 300ml IV soln IV ONE
== END 2023-03-23 23:59 | disposition home or self-care (01) ==
LOC: VAS 10:19
PROVIDERS: ATTEND Orthopaedic Surgery
DX: T84.59XA Infection and inflammatory reaction due to other internal joint prosthesis, initial encounter (principal); M79.604 Pain in right leg; M24.662 Ankylosis, left knee; Y83.8 Other surgical procedures as the cause of abnormal reaction of the patient, or of later complication, without mention of misadventure at the time of the procedure; Y92.89 Other specified places as the place of occurrence of the external cause
CPT/HCPCS: 93971

== ENCOUNTER 2023-04-27 05:13 | Day surgery (SDC) | payer BC ==
[2023-04-20 11:21] LABS: BASOPHILS # (AUTO) 0.1 X10'3 (0-0.2); BASOPHILS % (AUTO) 1.5 % (0-1); EOSINOPHILS # (AUTO) 0.6 X10'3 (0-0.9); EOSINOPHILS % (AUTO) 9.4 % (0-6); LYMPHOCYTES # (AUTO) 1.4 X10'3 (1.1-4.8); LYMPHOCYTES % (AUTO) 23.2 % (21-51); MEAN CORPUSCULAR HGB CONC 31.5 g/dL (33.0-36.5); MEAN CORPUSCULAR VOLUME 88.9 FL (78-98); MEAN PLATELET VOLUME 7.1 FL (7.4-10.4); MONOCYTES # (AUTO) 0.5 X10'3 (0-0.9); MONOCYTES % (AUTO) 9.1 % (2-12); NEUTROPHILS # (AUTO) 3.3 X10'3 (1.8-7.7); NEUTROPHILS % (AUTO) 56.8 % (42-75); PRE OP HEMATOCRIT 35.8 % (42.0-52.0); PRE OP HEMOGLOBIN 11.3 g/dL (14.0-17.9); PRE OP PLATELET COUNT 418 X10'3 (140-440); RED BLOOD COUNT 4.03 X10'6 (4.70-6.10); RED CELL DISTRIBUTION WIDTH 15.5 % (11.5-14.5)
[2023-04-20 11:27] LABS: ALBUMIN 3.9 G/DL (3.4-5.0); ALBUMIN/GLOBULIN RATIO 1.1 (1.1-1.5); ALKALINE PHOSPHATASE 73 IU/L (46-116); BLOOD UREA NITROGEN 13 MG/DL (7-18); BUN/CREATININE RATIO 16.9 (10.0-20.0); CALCIUM 8.7 MG/DL (8.5-10.1); CHLORIDE 105 MMOL/L (99-107); CREATININE 0.77 MG/DL (0.60-1.10); PRE OP ALT 29 U/L (30-65); PRE OP ANION GAP 10 (8-16); PRE OP AST 18 U/L (10-37); PRE OP BILIRUB, TOTAL 0.6 MG/DL (0.0-1.0); PRE OP GLUCOSE 88 MG/DL (70-104); PRE OP POTASSIUM 4.2 MMOL/L (3.4-5.1); PRE OP SODIUM 145 MMOL/L (135-145); TOTAL CARBON DIOXIDE 29.8 MMOL/L (24-32); TOTAL PROTEIN 7.6 G/DL (6.4-8.2); eGFR > 90 ML/MIN
[2023-04-25 08:00] VITALS: BP 147/111
[~2023-04-27] VITALS: Ht 188 cm; Wt 105.2 kg
[2023-04-27] VITALS (7 sets, daily range): BP systolic 109–147; BP diastolic 67–111
[~2023-04-27 05:13] MED LIST changes: -APIX5TAB3 PO; +ASPI-1264 PO; +ringers solution, lacted 1,000 ML IV SCH
[2023-04-27] MEDS ORDERED: famotidine 20mg tablet PO ONE (05:30)
[2023-04-27] MEDS ORDERED: BUPIVAcaine/PF 2.5 mg/ml (0.25%) 30ml vial ONE (06:55)
[2023-04-27] MEDS ORDERED: triamcinolone acetonide 40mg/ml inj ONE (06:55)
[2023-04-27] MEDS ORDERED: sevoflurane 250ml liquid IH ONE (07:05)
[2023-04-27] MEDS ORDERED: cloNIDine hcl/PF 100mcg/ml inj ONE (07:06)
[2023-04-27] MEDS ORDERED: fentaNYL/PF 50MCG/1 ML 2ML syringe ONE (07:07)
[2023-04-27] MEDS ORDERED: midazolam 1 mg/ML 2ml injection ONE (07:07)
[2023-04-27] MEDS ORDERED: ringers solution, lacted 1,000 ML IV SCH (07:15)
[2023-04-27] MEDS ORDERED: morphine 2 MG/ML inj. syringe IV PRN (07:15)
[2023-04-27] MEDS ORDERED: ketorolac trometh. 30mg/ml inj. IV ONE (07:15)
[2023-04-27] MEDS ORDERED: ondansetron/PF 4mg/2ml inj IV PRN (07:15)
[2023-04-27] MEDS ORDERED: acetaminophen 1,000mg/100ml IV 100 ML IV PRN (07:15)
[2023-04-27] MEDS ORDERED: morphine 4 MG/ML inj SYRINge IV PRN (07:15)
[2023-04-27] MEDS ORDERED: proCHLORperazine 10 MG/2 ml inj IV PRN (07:15)
[2023-04-27] MEDS ORDERED: hydrALAZINE 20mg/ml inj. IV PRN (07:15)
[2023-04-27] MEDS ORDERED: labetalol 20mg/4ml (5mg/ml) syringe IV PRN (07:15)
[2023-04-27] MEDS ORDERED: meperidine/PF 25mg/ml syringe IV PRN ×3 (07:15)
[2023-04-27] MEDS ORDERED: LIDOcaine 2% (20mg/ml) 5ml vial ONE (07:25)
[2023-04-27] MEDS ORDERED: propofol inj 20 ML IV ONE (07:25)
[2023-04-27] MEDS ORDERED: dexamethasone sod phosphate 4mg/ml inj. ONE (07:26)
[2023-04-27] MEDS ORDERED: ROPIVAcaine 0.5% (5mg/ml) 30ml vial ONE (07:26)
[2023-04-27] MEDS ORDERED: ondansetron/PF 4mg/2ml inj ONE (07:32)
--- NOTE | 2023-04-27 07:55 | NUR ---
Received from OR via [facility], accompanied by Anesthesiologist DR BAEKR and report given by Anesthesiologist. PT IS GROGGY BUT RESPONDS TO VERBAL STIMULI AND FOLLOWS COMMANDS. PT PLACED ON BEDSIDE MONITOR AND VSS. PT IS IN SR WITH RATE IN LOW 80'S. PT IS RECEIVING 8L O2 TO MASK AND TOLERATING WELL WITH O2 SAT >96%, WILL TITRATE DOWN AT PT TOLERATES. PT HAS 20G PIV TO LT HAND WITH LR INFUSING ORDERED. PT HAS BAND-AID TO RT LATERAL KNEE THAT IS CDI. PT C/O PAIN, WILL TREAT AND CONTINUE TO ASSESS.
[2023-04-27] MEDS ORDERED: HYDROcodone/acetaminophen 10/325mg tab PO PRN (08:05)
--- NOTE | 2023-04-27 08:55 | NUR ---
ABLE TO SAFELY AMBULATE AND TRANSFER SELF. IV TAKEN OUT WITHOUT ANY COMPLICATIONS. ALL DISCHARGE INSTRUCTIONS COVERED WITH PATIENT AND ALL QUESTIONS ANSWERED. PATIENT TAKEN OUT VIA WHEELCHAIR TO PERSONAL VEHICLE WHERE FLORENCE DROVE PATIENT HOME.
== END 2023-04-27 08:44 | disposition home or self-care (01) ==
LOC: PAS 05:13
PROVIDERS: ATTEND Orthopaedic Surgery
DX: T84.82XA Fibrosis due to internal orthopedic prosthetic devices, implants and grafts, initial encounter (principal); M17.32 Unilateral post-traumatic osteoarthritis, left knee; G89.29 Other chronic pain; E78.5 Hyperlipidemia, unspecified; G89.18 Other acute postprocedural pain; Z79.01 Long term (current) use of anticoagulants; Z79.899 Other long term (current) drug therapy; Z79.82 Long term (current) use of aspirin; Z72.89 Other problems related to lifestyle; Z98.890 Other specified postprocedural states; Z87.891 Personal history of nicotine dependence; Z86.718 Personal history of other venous thrombosis and embolism; Z87.442 Personal history of urinary calculi; F11.90 Opioid use, unspecified, uncomplicated; Y83.8 Other surgical procedures as the cause of abnormal reaction of the patient, or of later complication, without mention of misadventure at the time of the procedure; Y92.89 Other specified places as the place of occurrence of the external cause
CPT/HCPCS: 20610; 27570; 36415; 64447; 80053; 82948; 85025; J0131; J0735; J1100; J1885; J2175; J2250; J2405; J2704; J2795; J3010; J3301; J3490; J7120; Z7506; Z7512; A4618

== ENCOUNTER 2023-05-17 05:35 | Day surgery (SDC) | payer BC ==
[2023-05-14 09:58] LABS: BASOPHILS # (AUTO) 0.1 X10'3 (0-0.2); EOSINOPHILS # (AUTO) 0.3 X10'3 (0-0.9); EOSINOPHILS % (AUTO) 3.8 % (0-6); LYMPHOCYTES # (AUTO) 1.5 X10'3 (1.1-4.8); LYMPHOCYTES % (AUTO) 17.7 % (21-51); MEAN CORPUSCULAR HEMOGLOBIN 27.4 PG (27.0-31.0); MEAN CORPUSCULAR HGB CONC 32.1 g/dL (33.0-36.5); MEAN CORPUSCULAR VOLUME 85.5 FL (78-98); MEAN PLATELET VOLUME 7.4 FL (7.4-10.4); MONOCYTES # (AUTO) 0.7 X10'3 (0-0.9); MONOCYTES % (AUTO) 7.7 % (2-12); NEUTROPHILS % (AUTO) 69.8 % (42-75); PRE OP HEMATOCRIT 35.4 % (42.0-52.0); PRE OP HEMOGLOBIN 11.4 g/dL (14.0-17.9); PRE OP PLATELET COUNT 336 X10'3 (140-440); RED BLOOD COUNT 4.14 X10'6 (4.70-6.10); RED CELL DISTRIBUTION WIDTH 16.8 % (11.5-14.5)
[2023-05-14 10:14] LABS: ALBUMIN 3.9 G/DL (3.4-5.0); ALBUMIN/GLOBULIN RATIO 1.1 (1.1-1.5); ALKALINE PHOSPHATASE 64 IU/L (46-116); BLOOD UREA NITROGEN 15 MG/DL (7-18); BUN/CREATININE RATIO 15.5 (10.0-20.0); CALCIUM 8.7 MG/DL (8.5-10.1); CHLORIDE 104 MMOL/L (99-107); CREATININE 0.97 MG/DL (0.60-1.10); PRE OP ALT 26 U/L (30-65); PRE OP ANION GAP 9 (8-16); PRE OP AST 16 U/L (10-37); PRE OP BILIRUB, TOTAL 0.5 MG/DL (0.0-1.0); PRE OP GLUCOSE 97 MG/DL (70-104); PRE OP POTASSIUM 4.4 MMOL/L (3.4-5.1); PRE OP SODIUM 140 MMOL/L (135-145); TOTAL CARBON DIOXIDE 27.4 MMOL/L (24-32); TOTAL PROTEIN 7.3 G/DL (6.4-8.2); eGFR 81 ML/MIN
[2023-05-17] VITALS (8 sets, daily range): BP systolic 114–143; BP diastolic 59–91
[~2023-05-17] VITALS: Ht 188 cm; Wt 102.6 kg
[~2023-05-17 05:35] MED LIST changes: +famotidine 20mg tablet PO ONE
[2023-05-17] MEDS ORDERED: triamcinolone acetonide 40mg/ml inj ONE (06:42)
[2023-05-17] MEDS ORDERED: BUPIVAcaine/PF 2.5 mg/ml (0.25%) 30ml vial ONE (06:42)
[2023-05-17] MEDS ORDERED: fentaNYL/PF 50MCG/1 ML 2ML syringe ONE (07:13)
[2023-05-17] MEDS ORDERED: acetaminophen 1,000mg/100ml IV 100 ML IV ONE (07:14)
[2023-05-17] MEDS ORDERED: desflurane 240ml liquid inh. IH ONE (07:14)
[2023-05-17] MEDS ORDERED: midazolam 1 mg/ML 2ml injection ONE (07:14)
[2023-05-17] MEDS ORDERED: propofol inj 20 ML IV ONE (07:15)
[2023-05-17] MEDS ORDERED: LIDOcaine 2% (20mg/ml) 5ml vial ONE (07:15)
[2023-05-17] MEDS ORDERED: dexamethasone sod phosphate 4mg/ml inj. ONE (07:15)
[2023-05-17] MEDS ORDERED: morphine 4 MG/ML inj SYRINge ONE (07:47)
--- NOTE | 2023-05-17 07:47 | NUR ---
Received from OR via [facility], accompanied by Anesthesiologist and report given by ALBERTO Anesthesiologist. PATIENT WAKING UP, RIGHT KNEE PAIN NOTED, V/S WNL, 20G TO LEFT HAND, drsg to RIGHT KNEE C/D/I. Addendum: 05/17/23 at 0810 by Aryan Ortiz RN Amended: Links added.
[2023-05-17] MEDS ORDERED: fentaNYL/PF 50MCG/1 ML 2ML syringe IV PRN (07:50)
[2023-05-17] MEDS ORDERED: labetalol 20mg/4ml (5mg/ml) syringe IV PRN (07:50)
[2023-05-17] MEDS ORDERED: morphine 4 MG/ML inj SYRINge IV PRN (07:50)
[2023-05-17] MEDS ORDERED: hydrALAZINE 20mg/ml inj. IV PRN (07:50)
[2023-05-17] MEDS ORDERED: ondansetron/PF 4mg/2ml inj IV PRN (07:50)
[2023-05-17] MEDS ORDERED: ringers solution, lacted 1,000 ML IV SCH (07:50)
[2023-05-17] MEDS ORDERED: HYDROcodone/acetaminophen 10/325mg tab PO PRN (07:50)
[2023-05-17] MEDS ORDERED: ketorolac trometh. 30mg/ml inj. IV ONE (07:50)
[2023-05-17] MEDS ORDERED: morphine 2 MG/ML inj. syringe IV PRN (07:50)
[2023-05-17] MEDS: fentaNYL/PF 50MCG/1 ML 2ML syringe IV PRN ×2 (08:00→08:07)
--- NOTE | 2023-05-17 08:47 | NUR ---
ALL DISCHARGE CRITERIA HAS BEEN MET. VSS, PAIN AT A TOLERABLE LEVEL, ABLE TO SAFELY AMBULATE AND TRANSFER SELF. IV TAKEN OUT WITHOUT ANY COMPLICATIONS. ALL DISCHARGE INSTRUCTIONS COVERED WITH PATIENT AND ALL QUESTIONS ANSWERED. PATIENT TAKEN OUT VIA WHEELCHAIR WITH ALL BELONGINGS TO PERSONAL VEHICLE WHERE FAMILY DROVE PATIENT HOME. Addendum: 05/17/23 at 0901 by Aryan Ortiz RN Amended: Links added.
== END 2023-05-17 08:47 | disposition home or self-care (01) ==
LOC: PAS 05:35
PROVIDERS: ATTEND Orthopaedic Surgery
DX: T84.82XA Fibrosis due to internal orthopedic prosthetic devices, implants and grafts, initial encounter (principal); M54.16 Radiculopathy, lumbar region; M17.32 Unilateral post-traumatic osteoarthritis, left knee; F11.90 Opioid use, unspecified, uncomplicated; G89.29 Other chronic pain; G89.18 Other acute postprocedural pain; Z79.01 Long term (current) use of anticoagulants; Z79.899 Other long term (current) drug therapy; Z98.890 Other specified postprocedural states; Z86.718 Personal history of other venous thrombosis and embolism; Z72.89 Other problems related to lifestyle; Z87.891 Personal history of nicotine dependence; Y83.8 Other surgical procedures as the cause of abnormal reaction of the patient, or of later complication, without mention of misadventure at the time of the procedure; Y92.89 Other specified places as the place of occurrence of the external cause
CPT/HCPCS: 20610; 27570; 36415; 64447; 80053; 82948; 85025; J0131; J1100; J1885; J2250; J2270; J2704; J3010; J3301; J3490; J7120; Z7506; Z7512; A4215; A4618; A6449

== ENCOUNTER 2023-10-26 06:09 | Day surgery (SDC) | payer BC ==
[2023-10-22 12:12] LABS: BASOPHILS # (AUTO) 0.1 X10'3 (0-0.2); BASOPHILS % (AUTO) 1.4 % (0-1); EOSINOPHILS # (AUTO) 0.4 X10'3 (0-0.9); EOSINOPHILS % (AUTO) 7.2 % (0-6); LYMPHOCYTES # (AUTO) 1.4 X10'3 (1.1-4.8); LYMPHOCYTES % (AUTO) 23.3 % (21-51); MEAN CORPUSCULAR HEMOGLOBIN 30.6 PG (27.0-31.0); MEAN CORPUSCULAR HGB CONC 33.1 g/dL (33.0-36.5); MEAN CORPUSCULAR VOLUME 92.7 FL (78-98); MEAN PLATELET VOLUME 7.7 FL (7.4-10.4); MONOCYTES # (AUTO) 0.6 X10'3 (0-0.9); MONOCYTES % (AUTO) 9.9 % (2-12); NEUTROPHILS # (AUTO) 3.4 X10'3 (1.8-7.7); NEUTROPHILS % (AUTO) 58.2 % (42-75); PRE OP HEMATOCRIT 38.5 % (42.0-52.0); PRE OP HEMOGLOBIN 12.7 g/dL (14.0-17.9); PRE OP PLATELET COUNT 299 X10'3 (140-440); PRE OP WHITE BLOOD COUNT 5.9 10'3 (4.8-10.8); RED BLOOD COUNT 4.16 X10'6 (4.70-6.10); RED CELL DISTRIBUTION WIDTH 15.8 % (11.5-14.5)
[2023-10-22 12:26] LABS: ALBUMIN 3.7 G/DL (3.4-5.0); ALBUMIN/GLOBULIN RATIO 1.1 (1.1-1.5); ALKALINE PHOSPHATASE 57 IU/L (46-116); BLOOD UREA NITROGEN 9 MG/DL (7-18); BUN/CREATININE RATIO 10.6 (10.0-20.0); CALCIUM 8.6 MG/DL (8.5-10.1); CHLORIDE 104 MMOL/L (99-107); CREATININE 0.85 MG/DL (0.60-1.10); PRE OP ALT 31 U/L (30-65); PRE OP ANION GAP 7 (8-16); PRE OP AST 24 U/L (10-37); PRE OP BILIRUB, TOTAL 0.7 MG/DL (0.0-1.0); PRE OP GLUCOSE 93 MG/DL (70-104); PRE OP POTASSIUM 4.1 MMOL/L (3.4-5.1); PRE OP SODIUM 139 MMOL/L (135-145); TOTAL CARBON DIOXIDE 27.6 MMOL/L (24-32); TOTAL PROTEIN 7.2 G/DL (6.4-8.2); eGFR > 90 ML/MIN
[~2023-10-26] VITALS: Ht 188 cm; Wt 103.9 kg
[2023-10-26] VITALS (7 sets, daily range): BP systolic 109–133; BP diastolic 66–89; PULSE 55–96; RESP 12–18; TEMP 97.3; O2SAT 96–100
[~2023-10-26 06:09] MED LIST changes: -ACET-75 PO; -ASPI-1264 PO; -DIPH25CA83 PO; -LACT1CAP65 PO; -MELA10TA3 PO; -OXYC10TA47 PO; +ceFAZolin inj. 3,000 MG in normal saline 100ml IV soln 100 ML IV ONE
[2023-10-26] MEDS ORDERED: proCHLORperazine 10 MG/2 ml inj IV PRN (08:35)
[2023-10-26] MEDS ORDERED: ringers solution, lacted 1,000 ML IV SCH (08:35)
[2023-10-26] MEDS ORDERED: ondansetron/PF 4mg/2ml inj IV PRN (08:35)
[2023-10-26] MEDS ORDERED: morphine 4 MG/ML inj SYRINge IV PRN (08:35)
[2023-10-26] MEDS ORDERED: morphine 2 MG/ML inj. syringe IV PRN (08:35)
[2023-10-26] MEDS ORDERED: meperidine/PF 25mg/ml syringe IV PRN ×3 (08:35)
[2023-10-26] MEDS ORDERED: BUPIVAcaine 2.5mg/ml inj 50ml vial (contains preservative) ONE (10:08)
[2023-10-26] MEDS ORDERED: bacitracin 15gm ointment TP ONE ×2 (10:08→11:23)
[2023-10-26] MEDS ORDERED: propofol inj 20 ML IV ONE (10:17)
[2023-10-26] MEDS ORDERED: fentaNYL/PF 50MCG/1 ML 2ML syringe ONE (10:17)
[2023-10-26] MEDS ORDERED: midazolam 1 mg/ML 2ml injection ONE (10:17)
[2023-10-26] MEDS ORDERED: ROPIVAcaine 0.5% (5mg/ml) 30ml vial ONE (10:26)
[2023-10-26] MEDS ORDERED: BUPIVAcaine 2.5mg/ml inj 50ml vial (contains preservative) IJ ONE (10:59)
[2023-10-26] MEDS ORDERED: dexamethasone sod phosphate 4mg/ml inj. ONE (11:37)
[2023-10-26] MEDS ORDERED: ondansetron/PF 4mg/2ml inj ONE (11:38)
== END 2023-10-26 12:44 | disposition home or self-care (01) ==
LOC: PAS 06:09
PROVIDERS: ATTEND Podiatrist Foot & Ankle Surgery
DX: G57.51 Tarsal tunnel syndrome, right lower limb (principal); G89.29 Other chronic pain; G89.18 Other acute postprocedural pain; Z96.651 Presence of right artificial knee joint; Z98.890 Other specified postprocedural states; Z87.891 Personal history of nicotine dependence; Z86.718 Personal history of other venous thrombosis and embolism; Z87.442 Personal history of urinary calculi; Z79.899 Other long term (current) drug therapy; Z79.01 Long term (current) use of anticoagulants; Z72.89 Other problems related to lifestyle
CPT/HCPCS: 28035; 36415; 64445; 80053; 82948; 85025; A6223; J0690; J1100; J2250; J2405; J2704; J2795; J3010; J3490; J7030; J7120; Z7506; Z7508; Z7512; A4215; A4618; A6449; A7000